=== PATIENT | female | born 1965 | race Caucasian/White ===

== ENCOUNTER 2016-06-01 22:27 | Emergency (ER) | payer SELFPAY ==
[~2016-06-01] VITALS: Ht 165.1 cm; Wt 50.9 kg
[~2016-06-01 22:27] MED LIST: FLEEENE3 PR; HYDR2.5%T PR; HYDR25R PR; IBUP400 PO; IBUP400T20 PO; IBUP600T26 PO; OXYC-68 PO
[2016-06-01 23:11] VITALS: BP 134/93; PULSE 81; RESP 18; TEMP 97.9; O2SAT 99
[2016-06-02 00:25] VITALS: BP 152/84; PULSE 79; RESP 18; TEMP 97.9; O2SAT 100
[2016-06-02] MEDS ORDERED: DEXAMETHASONE SOD PHOS 4 MG/ML VIAL IV PUSH ONE (01:00)
[2016-06-02] MEDS ORDERED: AMOXICILLIN/CLAVULANATE K 875 MG TAB PO ONE (01:00)
[2016-06-02] MEDS ORDERED: ALBUTEROL SULFATE 90 MCG/ACT HFA 8 GM INHALER INH ONE (01:00)
[2016-06-02] MEDS ORDERED: MORPHINE SULFATE 8 MG/ML INJ IV PUSH ONE (01:00)
[2016-06-02] MEDS ORDERED: SODIUM CHLOR 0.9% 1000 ML INJ 1,000 ML IV ONE (01:00)
[2016-06-02] MEDS ORDERED: SODIUM CHLORIDE 0.9% FLUSH 5 ML FLUSH IVF PRN (01:00)
[2016-06-02] MEDS ORDERED: ACETAMINOPHEN 325 MG TAB PO ONE (01:00)
[2016-06-02] MEDS ORDERED: PROCHLORPERAZINE INJ 10 MG/2 ML VIAL IVP ONE (01:00)
[2016-06-02] MEDS ORDERED: diphenhydrAMINE HCL 50 MG/ML VIAL IVP ONE (01:00)
[2016-06-02 01:14] VITALS: RESP 18; O2SAT 99
[2016-06-02] MEDS ORDERED: PROM25TA5 PO (01:23)
[2016-06-02] MEDS ORDERED: AUGM875T PO (01:23)
[2016-06-02] MEDS ORDERED: HYDR-3533 PO (01:23)
[2016-06-02] MEDS ORDERED: OCEA0.653 EACH NARE (01:23)
[2016-06-02] MEDS ORDERED: CARB6.5S5 RIGHT EAR (01:23)
--- NOTE | 2016-06-02 01:24 | PD ---
HPI Chief Complaint: ENT Complaint Time Seen by Provider: 00:29 Travel History International Travel<30 days: No Contact w/Intl Traveler<30days: No Traveled to known affect area: No History of Present Illness HPI 50-year-old female complains of bilateral otalgia for about 3 weeks and with an acute worsening over the past 7 days. Bilateral tinnitus with popping sounds is reported. No otorrhea reported. She's also had a headache for 3 days most prominent in the forehead and also generalized. The patient has had headaches in the past however most recent was 3 years prior. She reports sinus problems for the last year at least. Copious rhinorrhea and postnasal drip is reported. She's had no fever. Various esat-mha-zdeqisr medications including Claritin, Elizabeth and Mucinex have not been helpful. Cephalgia is constant. Photophobia is reported. No loss of consciousness has occurred. Onset gradual. Patient denies drug abuse. She smokes tobacco, about one half pack per day. No neck stiffness reported. PFSH Past Medical History Asthma: Yes Anxiety: Yes Depression: Yes Diminished Hearing: No Immunizations Current: Yes Migraines: Yes Tetanus Vaccination: < 5 Years Influenza Vaccination: No ?: Not LMP: NONE Menopausal: Yes : 2 Para: 2 Ovarian Cysts: Yes Past Surgical History Gynecologic Surgery: Yes (OVARIAN CYST REMOVED LAP.) Social History Alcohol Use: Yes (BEER/DAILY) Tobacco Use: Yes (1 PPD) Substance Use: Yes (ETOH) Allergies-Medications (Allergen,Severity, Reaction): Coded Allergies: Sulfa (Verified Allergy, Severe, 06/01/16) Reported Meds & Prescriptions Reported Meds & Active Scripts Active Lortab (Hydrocodone-Acetaminophen) 5-325 Mg Tab 1-2 Tab PO Q6H PRN Phenergan (Promethazine HCl) 25 Mg Tab 25 Mg PO Q6H PRN [place] Nasal [place] (Sodium Chloride) 0.65% [place] 2 [place] EACH NARE DIRECTED PRN 14 Days Augmentin (Amoxicillin-Clavulanate) 875-125 mg Tab 875 Mg PO BID 10 Days not for use in CrCl <30 ml/min. Debrox Otic Drops (Carbamide Peroxide Otic Drops) 6.5% Soln 5-10 Drop RIGHT EAR BID PRN up to 4 days. Review of Systems Except as stated in HPI: all other systems reviewed are Neg General / Constitutional: No: Fever Eyes: Positive: Photophobia, No: Diploplia, Blurred Vision HENT: Positive: Headaches, Sore Throat, Rhinitis, Rhinorrhea, Congestion, Earache, No: Vertigo, Neck Stiffness, Neck Pain, Ear Discharge Gastrointestinal: No: Vomiting Physical Exam Narrative GENERAL: 50-year-old female pleasant mild distress secondary to pain SKIN: Warm and dry. HEAD: Atraumatic. Normocephalic. EYES: Pupils equal and round. No scleral icterus. No injection or drainage. No nystagmus. ENT: No nasal bleeding or discharge. Mucous membranes pink and moist. Minimal tenderness of the maxillary prominences bilaterally. Minimal cerumen collection in the right ear with visualization nonvisualization of the tympanic membrane. There is no mastoid tenderness on either side. No evidence of otitis externa on either side. The left tympanic membrane is clearly visualized , pink with obvious bony landmarks. No tenderness about the frontal sinuses. No anterior neck adenopathy. NECK: Trachea midline. No JVD. Posterior oropharynx with trace erythema. CARDIOVASCULAR: Regular rate and rhythm. No murmur appreciated. RESPIRATORY: No accessory muscle use. Clear to auscultation. Breath sounds equal bilaterally. GASTROINTESTINAL: Abdomen soft, non-tender, nondistended. Hepatic and splenic margins not palpable. MUSCULOSKELETAL: No obvious deformities. No clubbing. No cyanosis. No edema. NEUROLOGICAL: Awake and alert. No obvious cranial nerve deficits. Motor grossly within normal limits. Normal speech. PSYCHIATRIC: Appropriate mood and affect; insight and judgment normal. Data Data Last Documented VS Vital Signs Date Time Temp Pulse Resp B/P Pulse Ox O2 Delivery O2 Flow Rate FiO2 06/02/16 02:45 81 18 06/02/16 01:45 123/98 96 Room Air 06/02/16 00:25 97.9 Orders Ecg Monitoring (06/02/16 01:00) Iv Access Insert/Monitor (06/02/16 01:00) Oximetry (06/02/16 01:00) Sodium Chloride 0.9% Flush (Ns Flush) (06/02/16 01:00) Acetaminophen (Tylenol) (06/02/16 01:00) Prochlorperazine Inj (Compazine Inj) (06/02/16 01:00) Diphenhydramine Inj (Benadryl Inj) (06/02/16 01:00) Morphine Inj (Morphine Inj) (06/02/16 01:00) Sodium Chlor 0.9% 1000 Ml Inj (Ns 1000 M (06/02/16 01:00) Dexamethasone Inj (Decadron Inj) (06/02/16 01:00) Albuterol Hfa Inh (Proair Hfa Inh) (06/02/16 01:00) Amoxicil-Clavulanate (Augmentin) (06/02/16 01:00) MDM Medical Decision Making Medical Screen Exam Complete: Yes Emergency Medical Condition: Yes Differential Diagnosis Sinusitis, migraine, acute otitis media, pharyngitis, coryza, postnasal drip, allergies, pneumonia Narrative Course Patient has received abortive therapy for cephalgia with excellent effect. We had a prolonged discussion about treatment modalities. Return precautions discussed. Smoking cessation discussed. Patient ready for discharge. Scripts as below Diagnosis Primary Impression: Sinusitis Qualified Code: J01.00 - Subacute maxillary sinusitis Additional Impressions: Cephalgia Qualified Code: G44.89 - Other headache syndrome Otitis media Qualified Code: H65.91 - Right non-suppurative otitis media Referrals: Patient Assistance Program call for appointment Additional Instructions: You have a choice when it comes to health care, and we are glad that you chose [facility]. Hopefully, we have met your expectations on today's visit. You are welcome to return to [facility] at any time, as we are committed to meeting the health care needs of our community. Med/Other Pt SpecificInfo: Prescription(s) given Scripts Hydrocodone-Acetaminophen (Lortab)5-325 Mg Tab1-2 Tab PO Q6H PRN (PAIN SCALE 6 TO 10) #15 TAB Ref 0 Prov:Nikko Jenkins MD 06/02/16 Promethazine (Phenergan)25 Mg Tab25 Mg PO Q6H PRN (MIGRAINE HEADACHE) #10 TAB Ref 0 Prov:Nikko Jenkins MD 06/02/16 Saline Nasal ([place] Nasal [place])0.65% Spray2 [place] EACH NARE DIRECTED PRN ( NASAL CONGESTION) 14 Days Ref 0 Prov:Nikko Jenkins MD 06/02/16 Amoxicillin-Clavulanate (Augmentin)875-125 mg [id number] Mg PO BID 10 Days Ref 0 not for use in CrCl <30 ml/min. Prov:Nikko Jenkins MD 06/02/16 Carbamide Peroxide Otic Drops (Debrox Otic Drops)6.5% Soln5-10 Drop RIGHT EAR BID PRN (Ear Wax Removal) #1 BOTTLE Ref 0 up to 4 days. Prov:Nikko Jenkins MD 06/02/16 Disposition: 01 DISCHARGE HOME Condition: Stable Nikko Jenkins MD Jun 02, 2016 01:24
[2016-06-02 01:45] VITALS: BP 123/98; PULSE 82; RESP 18; O2SAT 96
[2016-06-02 02:45] VITALS: BP 131/88; PULSE 81; RESP 18; O2SAT 99
== END 2016-06-02 03:20 | disposition home or self-care (01) ==
LOC: PHED 22:27
DX: J32.9 Chronic sinusitis, unspecified (principal); R51 Headache; H66.90 Otitis media, unspecified, unspecified ear; F41.8 Other specified anxiety disorders; J45.909 Unspecified asthma, uncomplicated; F17.210 Nicotine dependence, cigarettes, uncomplicated; F10.20 Alcohol dependence, uncomplicated; Y90.9 Presence of alcohol in blood, level not specified
CPT/HCPCS: 96361; 96374; 96375; 99283; J0780; J1100; J1200; J2270; J7030

== ENCOUNTER 2017-07-08 10:14 | Emergency (ER) | payer SELFPAY ==
[~2017-07-08] VITALS: Ht 165.1 cm; Wt 52.0 kg
[~2017-07-08 10:14] MED LIST changes: +AUGM875T PO; +CARB6.5S5 RIGHT EAR; -FLEEENE3 PR; +HYDR-3533 PO; -HYDR2.5%T PR; -HYDR25R PR; -IBUP400 PO; -IBUP400T20 PO; -IBUP600T26 PO; +OCEA0.653 EACH NARE; -OXYC-68 PO; +PROM25TA5 PO
[2017-07-08 10:23] VITALS: BP 125/92; PULSE 94; RESP 16; TEMP 98.1; O2SAT 96
[2017-07-08] MEDS ORDERED: ZITHTAB PO (10:59)
[2017-07-08] MEDS ORDERED: PRED50 PO (10:59)
[2017-07-08] MEDS ORDERED: VENTAER INH (10:59)
--- NOTE | 2017-07-08 11:00 | PD ---
HPI . Shortness of breath Chief Complaint: Respiratory Symptoms Time Seen by Provider: 10:34 Travel History International Travel<30 days: No Contact w/Intl Traveler<30days: No Traveled to known affect area: No History of Present Illness HPI Patient presents with a one month history of coughing. She states that she has positive sputum which had been white but is now turning green. She has not run any fever. She has been treating her symptoms with NyQuil and J[place] plus cold medicine. Despite this, her symptoms are getting worse rather than better. She gives a remote history of asthma as a child. She also admits to cigarette smoking. [facility] Past Medical History Asthma: Yes Anxiety: Yes Depression: Yes Diabetes: No Diminished Hearing: No Immunizations Current: Yes Migraines: Yes Tetanus Vaccination: < 5 Years ?: Not Menopausal: Yes : 2 Para: 2 Ovarian Cysts: Yes Past Surgical History Gynecologic Surgery: Yes (OVARIAN CYST REMOVED LAP.) Social History Alcohol Use: Yes (BEER/DAILY) Tobacco Use: Yes (1 PPD) Substance Use: Yes (ETOH) Allergies-Medications (Allergen,Severity, Reaction): Coded Allergies: Sulfa (Sulfonamide Antibiotics) (Unverified Allergy, Severe, 07/08/17) Reported Meds & Prescriptions Reported Meds & Active Scripts Active No Active Prescriptions or Reported Medications Review of Systems Except as stated in HPI: all other systems reviewed are Neg General / Constitutional: No: Fever, Chills HENT: Positive: Headaches, Sore Throat, Rhinorrhea Cardiovascular: No: Chest Pain or Discomfort Respiratory: Positive: Cough, Shortness of Breath Physical Exam Narrative GENERAL: Awake and alert. She is able to speak to me in complete sentences without respiratory distress. She smells of old cigarette smoke. SKIN: warm/dry. Normal color and turgor. HEAD: Normocephalic. Atraumatic. EYES: Pupils equal and round. No scleral icterus. No injection or drainage. ENT: No nasal bleeding or discharge. Mucous membranes pink and moist. NECK: Trachea midline. Full range of motion without pain.. CARDIOVASCULAR: Regular rate and rhythm. Heart sounds are normal. RESPIRATORY: No accessory muscle use. Occasional scattered coarse expiratory wheeze. Breath sounds equal bilaterally. GASTROINTESTINAL: Abdomen soft. Nontender. Bowel sounds present. Nondistended. MUSCULOSKELETAL: No obvious deformities. NEUROLOGICAL: Awake and alert. No obvious cranial nerve deficits. Motor grossly within normal limits. Normal speech. PSYCHIATRIC: Appropriate mood and affect; insight and judgment normal. Data Data Last Documented VS Vital Signs Date Time Temp Pulse Resp B/P (MAP) Pulse Ox O2 Delivery O2 Flow Rate FiO2 07/08/17 10:28 16 96 Room Air 07/08/17 10:23 98.1 94 125/92 (103) [facility] Medical Decision Making Medical Screen Exam Complete: Yes Emergency Medical Condition: Yes Differential Diagnosis Differential diagnosis of dyspnea includes but is not limited to congestive heart failure, pneumonia, wheezing, pneumothorax, pulmonary embolism Narrative Course This patient presents complaining with a one-month or more history of cough and shortness of breath. She does have sputum production. She is a smoker. On exam, she has bronchitis. Diagnosis Primary Impression: Bronchitis Patient Instructions: Acute Bronchitis (DC), General Instructions Med/Other Pt SpecificInfo: Prescription(s) given Scripts Prednisone (Prednisone) 50 Mg Tab 50 MG PO DAILY for 5 Days, #5 TAB 0 Refills Prov: Makayla Troy MD 07/08/17 Albuterol 18 GM Inh (Ventolin Hfa 18 GM Inh) 90 Mcg/Act Aer 2 PUFF INH Q4H Y for SHORTNESS OF BREATH, #1 INHALER 0 Refills Prov: Makayla Troy MD 07/08/17 Azithromycin (Zithromax Z-Francisco J) 250 Mg Dspk 250 MG PO DIRECTED for Infection, #1 DSPK 0 Refills 500 MG (2 tabs) day 1, then 1 tab days 2-5. Prov: Makayla Troy MD 07/08/17 Disposition: 01 DISCHARGE HOME Condition: Stable Makayla Troy MD Jul 08, 2017 10:59
== END 2017-07-08 11:28 | disposition home or self-care (01) ==
LOC: PHED 10:14
DX: J40 Bronchitis, not specified as acute or chronic (principal); J45.909 Unspecified asthma, uncomplicated; F41.9 Anxiety disorder, unspecified; F32.9 Major depressive disorder, single episode, unspecified; F17.210 Nicotine dependence, cigarettes, uncomplicated
CPT/HCPCS: 99283